=== PATIENT | male | born 1975 | race Caucasian/White ===

== ENCOUNTER 2023-05-31 00:14 | Day surgery (SDC) | payer OTHER, SELFPAY ==
[2023-05-04 15:53] VITALS: BMI 25.7
--- NOTE | 2023-05-28 11:26 | SUR.PREOP ---
Patient called regarding upcoming procedure. Reviewed preop instructions, appointment times, and procedure prep.
[2023-05-31 11:47] VITALS: BP 125/81; PULSE 82; RESP 20; TEMP 35.9; O2SAT 98; BMI 26.0
[2023-05-31] MEDS: LACTATED RINGERS 1,000 ML 150 ML IV CONT (11:56)
--- NOTE | 2023-05-31 12:21 | WPDANESEPPF ---
Anes - Initial Pre Proc Eval Procedure: Operation Date: 05/31/23 13:00 Proposed Procedures p Screening Colonoscopy - Shadi Turner MD Date/Time: 05/31/23 12:21 Surgeon: Shadi Turner MD Pre Op Diagnosis: neoplasm screening Patient Data Age: 47 Gender: M Height: 1.85 m Weight: 89.6 kg Last Vital Signs Temp 96.6 F L 05/31/23 11:47 Pulse 82 05/31/23 11:47 Resp 20 05/31/23 11:47 BP 125/81 05/31/23 11:47 Pulse Ox 98 05/31/23 11:47 O2 Del Method Room Air 05/31/23 11:47 Allergies Allergy/AdvReac Type Severity Reaction Status Date / Time No Known Allergies Allergy Verified 05/31/23 11:47 Home Medications Medication Instructions Recorded Confirmed Type No Home Medications 05/04/23 05/31/23 History Patient hx anesthesia problems: none Family hx anesthesia problems: none Results Review: All pre-operative results and documents have been reviewed as part of the pre-operative evaluation. [facility] Social History Social History Smoking status: Former smoker Tobacco type: cigarettes Alcohol intake: current Drinks per week: 2 Substance use type: does not use Living arrangements: with family Spiritual care concerns: No Anes - Eval Final PreProcedure Day of Procedure 05/31/23 12:21 Patient weight: normal Heart: regular rate and rhythm Lungs: clear to auscultation Airway: Mallampati scale class II Neurological: alert and oriented Last oral intake: >/= 8 hours ASA classification: II Emergent: no Anesthetic plan: proceed Anesthesia type and monitoring: general GIVS and standard monitoring Results Review: All pre-operative results and documents have been reviewed as part of the pre-operative evaluation. Informed Consent: The patient's anesthetic plan and its attendant risks and benefits were discussed with the patient/family/POA. Questions were solicited and answers provided to the satisfaction of the patient/family/POA.
--- NOTE | 2023-05-31 12:31 | PM.HPGS ---
History of Present Illness History of Present Illness Consent: Risks, benefits, and alternatives have been discussed and questions answered. Patient agrees to proceed with procedure. Chief complaint: neoplasm screening Narrative: Jesse Rivera is a 47 year old male here for first screening colonoscopy Review of Systems Constitutional: Constitutional: Denies headache(s) and Denies weakness Eyes: Eyes: Denies blurry vision ENT: Reports Normal hearing present, Denies headache(s) and Denies neck pain Cardiovascular: Cardiovascular: Denies chest pain and Denies dyspnea Respiratory: Respiratory: Denies dyspnea Gastrointestinal: Gastrointestinal: Reports no additional gastrointestinal complaints Genitourinary: Genitourinary: Denies dysuria Musculoskeletal: Musculoskeletal: Denies neck pain Integumentary/Breasts: Skin/Breast: Denies dry skin Neurologic: Reports Normal hearing present, Denies headache(s) and Denies weakness Psychiatric: Psychiatric: Denies anxiety Endocrine: Endocrine: Denies change in body appearance Hematologic/Lymphatic: Hematologic/Lymphatic: Denies easy bleeding Allergic/Immunologic: Allergic/Immunologic: Denies urticaria PMFSH Past Medical History Medical History (Updated 05/31/23 @ 12:31 by Shadi Turner MD) Colon cancer screening Social History Social History Smoking status: Former smoker Tobacco type: cigarettes Alcohol intake: current Drinks per week: 2 Substance use type: does not use Living arrangements: with family Spiritual care concerns: No Meds Home Medications and Allergies Home Medications Medication Instructions Recorded Confirmed Type No Home Medications 05/04/23 05/31/23 History Allergies Allergy/AdvReac Type Severity Reaction Status Date / Time No Known Allergies Allergy Verified 05/31/23 11:47 Vital Signs Vital Signs - 24 hr 05/31/23 11:47 Temperature 96.6 F L Pulse Rate 82 Respiratory Rate 20 Blood Pressure 125/81 Pulse Oximetry 98 Oxygen Delivery Room Air Exam Const: General: comfortable and no acute distress HENMT: Face/Nose/Sinus: Normal nares present Eyes: General: appearance normal, both eyes and all related structures Neck: Neck: no JVD Resp: Auscultation: clear to auscultation bilaterally Cardio: Rate: regular rate Rhythm: regular rhythm GI: Inspection: non-distended GI Palp: Yes Soft to palpation Skin: General skin exam: normal color Neuro: General: gait normal Speech: normal speech Extrem: General: normal to inspection Psych: Mental Status: mental status grossly normal Assessment and Plan Assessment and plan (1) Colon cancer screening: Code(s): Z12.11 - Encounter for screening for malignant neoplasm of colon Status: Acute Assessment and Plan: colonoscopy
[2023-05-31 12:52] VITALS: BP 105/71; PULSE 80; RESP 18; O2SAT 98
[2023-05-31 13:02] VITALS: BP 100/69; PULSE 76; RESP 24; O2SAT 100
[2023-05-31 13:12] VITALS: BP 112/81; PULSE 73; RESP 13; O2SAT 100
== END 2023-05-31 13:22 | disposition home or self-care (01) ==
PROVIDERS: Visit Provider Internal Medicine Gastroenterology
PROC: 0DJD8ZZ Inspection of Lower Intestinal Tract, Via Natural or Artificial Opening Endoscopic (ICD-10-PCS; CPT 45378; principal; 2023-05-31 13:00)
DX: Z12.11 Encounter for screening for malignant neoplasm of colon (principal); K63.5 Polyp of colon; K64.8 Other hemorrhoids; Z87.891 Personal history of nicotine dependence
CPT/HCPCS: 45385; 88305; J2704; J7120

== ENCOUNTER 2023-07-01 09:43 | Outpatient (CLI) | payer OTHER, SELFPAY ==
--- NOTE | 2023-07-13 15:44 | P.SLEEP_ITS ---
Sleep Study - Home Unattended Date of Study: 07/01/23 Ordering Provider: Chele Whittington, Interpreting Provider: Norma Hall DO Home Sleep Study Type: Watch PAT Height: 1.85 m Weight: 92.986 kg Body Mass Index: 27.0 Neck Circumference (inches): 15 Hellier: 15 Reason for Sleep Study Daytime hypersomnia Sleep History The sleep questionnaire forms are unavailable so unable to provide a sleep history. [facility] Past Medical History Medical History Colon cancer screening Social History Social History Smoking status: Former smoker Tobacco type: cigarettes Alcohol intake: current Drinks per week: 2 Substance use type: does not use Living arrangements: with family Spiritual care concerns: No Medications Home Medications Medication Instructions Recorded Confirmed Type No Home Medications 05/04/23 05/31/23 History Sleep Procedure The sleep study was completed using [employer] a technically adequate device with seven channels: peripheral arterial tone, actigraphy, body position, snore, respiratory movement, pulse oximetry, sleep staging, and heart rate. Prior to using the device, the patient received verbal and written instructions for its application and was provided with the help desk phone number for additional telephonic instruction with 24-hour availability of qualified personnel to answer questions. The study was scored using CMS guidelines. Sleep Architecture The total recording time is 9 hrs, 14 min. The total sleep time is 8 hrs, 45 min. Sleep latency is 6 minutes. REM latency is 201 minutes. The patient had 3 episodes of waking. Sleep architecture shows 10.6% deep sleep, 65.1% light sleep, and (as % Total Sleep Time) showed NREM (Light 65.1%; Deep 10.6%), and a 24.3% stage REM. The patient spent 40.0% of total sleep time in the supine position. Sleep efficiency was 94.77%. Respiratory Analysis The overall AHI (pAHI 4%:) is 3.7. The central AHI is 2.0. The AHI was 3.5 in NREM and 4.3 in REM sleep. The AHI was 4.6 in Supine and 3.1 in Non-supine sleep. Percent of Ricky Vernon respirations is 0.0%. Oximetry Data The oxygen desaturation index (NIDIA 4%:) is 3.7. The mean saturation is 94%, and the lowest saturation is 89%. Time spent with saturation < 88% is 0.0 minutes. Snoring Profile Snoring average intensity is 40 dB. The patient snored above 45 decibels for 11.8 minutes, 2.2% of sleep time. Cardiac Profile The average pulse rate is 73 beats per minutes. The lowest pulse rate is 58 bpm. The highest pulse rate reported is 104 bpm. No time periods suspicious for atrial fibrillation. Premature beats occur <0.1 per minute. Assessment and Plan Assessment and Plan (1) Excessive daytime sleepiness: Code(s): G47.19 - Other hypersomnia Status: Acute Assessment and Plan: The patient had an overall AHI of 3.7 with desaturation down to 89%. This is not consistent with sleep disordered breathing. Due to the severity of the patient's hypersomnia, the patient needs to be evaluated further. I recommend that the patient have a split night study with the use of a hypnotic (Lunesta 2- 3 mg or Ambien 10 mg) to ensure we obtain enough sleep data. Data The data obtained during this sleep study is adequate for interpretation. Certification This sleep study has been reviewed by a board certified sleep medicine physician.
[2023-07-13 15:49] VITALS: BMI 27.0
== END 2023-07-05 08:39 | disposition home or self-care (01) ==
LOC: ANHCSM 09:46
PROVIDERS: Visit Provider Internal Medicine Pulmonary Disease
DX: G47.33 Obstructive sleep apnea (adult) (pediatric) (principal)
CPT/HCPCS: 95800

== ENCOUNTER 2023-11-13 08:38 | Emergency (ER) | payer OTHER, SELFPAY ==
[2023-11-13 08:48] VITALS: BP 126/83; PULSE 74; RESP 16; TEMP 36.4; O2SAT 98
--- NOTE | 2023-11-13 09:07 | ED.GENADULT ---
HPI - General Adult General Chief complaint: Skin/Abscess/Foreign Body Stated complaint: rash Time Seen by Provider: 11/13/23 09:08 Source: patient Mode of arrival: ambulatory Limitations: no limitations History of Present Illness HPI narrative: 48-year-old male patient presents to the [facility] with complaints of sore throat, and rash that started on the palms of the hands it is now spread to bilateral upper extremities there is no notable rash noted to his feet as well. Patient states when his symptoms 1st started about 4 days ago he did have a mild fever body aches and chills but that has since subsided. Related Data Allergies Allergy/AdvReac Type Severity Reaction Status Date / Time No Known Allergies Allergy Verified 11/13/23 09:02 Review of Systems Review of Systems: CONSTITUTIONAL: Positive fever, chills, or sweats. EYES: Denies visual changes, redness, or discharge. ENT: Denies rhinorrhea, congestion, positive sore throat, denies otalgia. CARDIOVASCULAR: Denies chest pain, palpitations, or edema. RESPIRATORY: Denies cough or dyspnea. GASTROINTESTINAL: Denies abdominal pain, nausea, vomiting, or diarrhea. GENITOURINARY: Denies dysuria or hematuria. SKIN: positive rash , denies itching. MUSCULOSKELETAL: Denies back pain, joint pain, or myalgia. NEUROLOGIC: Denies headache, numbness, or weakness. PSYCHIATRIC: Denies anxiety or depression. [facility] Past Medical History Medical History Colon cancer screening Social History Social History Smoking status: Former smoker Tobacco type: cigarettes Alcohol intake: current Drinks per week: 2 Substance use type: does not use Living arrangements: with family Spiritual care concerns: No Comments At the time of my signature I agree with nursing past medical history, surgical, social, and family history. There is no relevant family history pertinent to the presenting complaint. Exam Narrative: GENERAL: Well-appearing, well-nourished, and in no acute distress. HEAD: Normocephalic, atraumatic. EYES: PERRLA and EOMI. ENT: Nares clear, no rhinorrhea or epistaxis. Mucous membranes moist. posterior pharynx with notable blisters to the back of the throat and some erythema present. No tonsillar enlargement, no exudates or lesions present. NECK: Supple. No lymphadenopathy CHEST: Clear to auscultation. No respiratory distress. HEART: Regular rate and rhythm. No murmur heard. Normal peripheral pulses. ABDOMEN: Soft, nontender, nondistended, normal active bowel sounds. EXTREMITIES: Normal range of motion. No edema. SKIN: Warm, dry, Patient does have a fine maculopapular rash noted to the chest. Patient has rash with areas of round indurated small erythema noted to the palm various areas on the hands and upper extremities as well as the lower extremities and top of the feet. No notable rash noted to the bottom of the feet. NEURO: No focal deficits. Alert and oriented x3. Course Course Level of Care: Express Care Visit Reevaluation(s) Reevaluation #1: re-evaluated patient notified him a strep test today is negative. Discussed with him I do believe this is most likely a [id number] disease. Discussed with him that this is caused by a virus and antibiotics are not needed at this time. We will discharge him home with steroid cream to help with the written itchy rash as well as Magic mouthwash to help with the pain in the back of the throat. Patient may take [id number] Tylenol ibuprofen as needed for pain but this typically will go away on its own. Patient is aware the plan of care denies any other questions or concerns at this time. Date: 11/13/23 Time: 09:33 Vital Signs Vital signs: Vital Signs Temperature 36.4 C 11/13/23 08:48 Pulse Rate 74 11/13/23 08:48 Respiratory Rate 16 11/13/23 08:48 Blood Pressure 126/83 07
[2023-11-13 09:26] LABS: EDSTREPNEGPOS1 Presumptive Negative
== END 2023-11-13 09:35 | disposition home or self-care (01) ==
PROVIDERS: Emergency Provider Nurse Practitioner Family
DX: B08.4 Enteroviral vesicular stomatitis with exanthem (principal); Z87.891 Personal history of nicotine dependence
CPT/HCPCS: 87081; 87880; 99213; G0463